=== PATIENT | male | born 1980 | race Two or more races ===

== ENCOUNTER 2017-09-16 07:41 | Emergency (ER) | payer OTHER ==
[~2017-09-16] VITALS: Ht 170.2 cm; Wt 115.7 kg
[~2017-09-16 07:41] MED LIST: BENADRYL50 MG PO; MEDROLPACK PO
[2017-09-16] MEDS ORDERED: AVAPRO150 MG (08:12)
== END 2017-09-16 12:38 | disposition home or self-care (01) ==
LOC: ER 07:41
DX: K52.9 Noninfective gastroenteritis and colitis, unspecified (principal)